=== PATIENT | female | born 1975 | race Caucasian/White ===

== ENCOUNTER 2016-11-12 20:27 | Inpatient (IN) | payer OTHER ==
[~2016-11-12] VITALS: Ht 165.1 cm; Wt 88.1 kg
[2016-11-12] MEDS: SODIUM CHLOR 0.9% 1000 ML INJ 1,000 ML IV SCH (02:00)
[~2016-11-12 20:27] MED LIST: BUPR100CR PO; LEVO.125 PO; LEXA20TA PO; SERO150T PO; ST J81CH PO; VALCYCLOVIR PO
--- NOTE | 2016-11-12 20:36 | PD ---
HPI Chief Complaint: overdose Time Seen by Provider: 20:36 Travel History International Travel<30 days: No Contact w/Intl Traveler<30days: No History of Present Illness HPI 41-year-old female with a history of mood disorder and hypothyroidism is brought to the emergency department under [facility] act by EMS for evaluation of possible intentional overdose. Per EMS report the patient texted family members earlier this afternoon around 3 PM stating that she was going to take medications to kill herself. The patient's called EMS at about 7:45 PM noting that she was unresponsive in the recliner chair. The patient's noted that there were empty bottles of Roxicodone, Lortab, Lexapro and Wellbutrin in the bathroom trash can. These are old bottles, he is unsure if she took these or not. The patient is mildly arousable to sternal rub. She has been breathing well and sats have been 94% and higher per EMS. No valuable history is obtainable from the patient. PFSH Past Medical History Asthma: Yes Blood Disorders: No Bipolar Disorder: Yes Anxiety: No Depression: No Cancer: No Cardiovascular Problems: No COPD: No Cerebrovascular Accident: No Diabetes: No Endocrine: Yes GERD: Yes Glaucoma: No Genitourinary: No Hepatitis: No Hiatal Hernia: No Hypertension: No Immune Disorder: No Kidney Stones: No Musculoskeletal: No Neurologic: Yes Psychiatric: Yes (Bipolar disorder, depression) Reproductive: Yes Respiratory: Yes Migraines: Yes Renal Failure: No Seizures: No Sleep Apnea: No Thyroid Disease: Yes (Hypothyroidism) Ulcer: No Menopausal: Yes Para: 4 Dilation and Curettage (D&C): Yes (with exploratory lap) Past Surgical History Abdominal Surgery: Yes AICD: No Arteriovenous Shunt: No Cardiac Surgery: No Section: Yes (x1) Ear Surgery: No Endocrine Surgery: No Eye Surgery: No Genitourinary Surgery: No Gynecologic Surgery: Yes (D & C, Hysterectomy, ) Hysterectomy: Yes Insulin Pump: No Joint Replacement: No Oral Surgery: No Pacemaker: No Thoracic Surgery: Yes (Breast augmentation) Other Surgery: Yes (breast augmentation) Social History Alcohol Use: Yes (weekly) Tobacco Use: No Substance Use: No Allergies-Medications (Allergen,Severity, Reaction): Coded Allergies: No Known Allergies (Verified , 11/12/16) Reported Meds & Prescriptions Reported Meds & Active Scripts Active Reported Bupropion HCl 100 Mg Tab 100 Mg PO BID Hydrocodone-Acetaminophen 5-300 Mg Tab 1 Tab PO Q6H PRN [Roxicet] 5-325 Escitalopram (Escitalopram Oxalate) 20 Mg Tab 20 Mg PO DAILY [Valcyclovir] 500 Mg PO DAILY Aspirin 81 mg chewable (Aspirin) 81 Mg Chw 81 Mg PO DAILY Seroquel XR 150 mg (Quetiapine Fumarate) 150 Mg Tab 200 Mg PO HS Synthroid (Levothyroxine Sodium) 125 Mcg Tab 200 Mcg PO DAILY Review of Systems Except as stated in HPI: all other systems reviewed are Neg Physical Exam Exam Limitations: Altered Mental Status Narrative GENERAL: Well-nourished and well-developed female patient in no acute distress. SKIN: Warm and dry. HEAD: Normocephalic and atraumatic. EYES: No injection, drainage, or hyphema noted. PERRLA. EOMI. Pinpoint pupils. ENT: No nasal drainage noted. Oropharynx is clear. NECK: Supple and the trachea is midline. CARDIOVASCULAR: Regular rate and rhythm. RESPIRATORY: Breath sounds are equal bilaterally with no accessory muscle use, wheezing, rhonchi, or crackles. GASTROINTESTINAL: Abdomen is soft, non-tender, and nondistended. MUSCULOSKELETAL: No obvious deformities, swelling, cyanosis, or ecchymosis is present throughout the upper and lower extremities. Moves all extremities equally. NEUROLOGICAL: Lethargic, arousable to sternal rub. Cranial nerves are grossly intact. Data Data Last Documented VS Vital Signs Date Time Temp Pulse Resp B/P Pulse Ox O2 Delivery O2 Flow Rate FiO2 11/12/16 21:43 89 16 114/76 100 Nasal Cannula 2 11/12/16 20:55 97.0 Orders Electrocardiogram (11/12/16 20:34) Alcohol (Ethanol) (11/12/16 20:34) Complete Blood Count With Diff (11/12/16 20:34) Comprehensive Metabolic Panel (11/12/16 20:34) Drug Screen, Random Urine (11/12/16 20:34) Salicylates (Aspirin) (11/12/16 20:34) Tylenol (Acetaminophen) (11/12/16 20:34) Chest, Single Ap (11/12/16 20:34) Ct Brain W/O Iv Contrast(Rout) (11/12/16 20:34) Arterial Blood Gas (Abg) (11/12/16 20:34) Iv Access Insert/Monitor (11/12/16 20:34) Ecg Monitoring (11/12/16 20:34) Oximetry (11/12/16 20:34) Sodium Chloride 0.9% Flush (Ns Flush) (11/12/16 20:45) Naloxone Inj (Narcan Inj) (11/12/16 20:45) Naloxone Inj (Narcan Inj) (11/12/16 20:40) Sodium Chlor 0.9% 1000 Ml Inj (Ns 1000 M (11/12/16 20:41) Thyroid Stimulating Hormone (11/12/16 21:25) Free T3 (11/12/16 21:25) ^ Sitter (11/12/16 21:28) Sodium Chlor 0.9% 1000 Ml Inj (Ns 1000 M (11/12/16 21:51) Call Poison Control (11/12/16 22:05) Acetylcysteine Inj (Acetadote Inj) (11/12/16 22:45) Tylenol (Acetaminophen) (11/13/16 01:00) Prothrombin Time / Inr (Pt) (11/12/16 22:36) Act Partial Throm Time (Ptt) (11/12/16 22:36) Acetylcysteine Inj (Acetadote Inj) (11/12/16 23:45) Naloxone Inj (Narcan Inj) (11/12/16 22:45) Naloxone Inj (Narcan Inj) (11/12/16 22:45) Acetylcysteine Inj (Acetadote Inj) (11/13/16 04:00) Ob/Psych Drug Screen, Urine (11/12/16 22:56) Urinary Catheter Insert/Apply (11/12/16 23:00) Ng Gastric Tube Insert/Monitor (11/12/16 23:00) Admit Order (Ed Use Only) (11/12/16 23:00) Labs Laboratory Tests Test 11/12/16 11/12/16 11/12/16 20:53 21:00 22:00 Blood Gas Puncture Site RT RADIAL Blood Gas Patient Temperature 98.6 Blood Gas HCO3 21 mmol/L Blood Gas Base Excess -4.0 mmol/L Blood Gas Oxygen Saturation 95 % Arterial Blood pH 7.36 Arterial Blood Partial 37 mmHg Pressure CO2 Arterial Blood Partial 134 mmHG Pressure O2 Arterial Blood Oxygen Content 17.7 Vol % Arterial Blood 1.7 % Carboxyhemoglobin Arterial Blood Methemoglobin 2.0 % Blood Gas Hemoglobin 13.1 G/DL Oxygen Delivery Device NASAL CANNULA Blood Gas Liter Flow 2 L/M White Blood Count 9.7 TH/MM3 Red Blood Count 4.66 MIL/MM3 Hemoglobin 13.3 GM/DL Hematocrit 40.0 % Mean Corpuscular Volume 86.0 FL Mean Corpuscular Hemoglobin 28.6 PG Mean Corpuscular Hemoglobin 33.3 % Concent Red Cell Distribution Width 13.8 % Platelet Count 369 TH/MM3 Mean Platelet Volume 7.6 FL Neutrophils (%) (Auto) 66.4 % Lymphocytes (%) (Auto) 25.1 % Monocytes (%) (Auto) 6.8 % Eosinophils (%) (Auto) 1.0 % Basophils (%) (Auto) 0.7 % Neutrophils # (Auto) 6.4 TH/MM3 Lymphocytes # (Auto) 2.4 TH/MM3 Monocytes # (Auto) 0.7 TH/MM3 Eosinophils # (Auto) 0.1 TH/MM3 Basophils # (Auto) 0.1 TH/MM3 CBC Comment DIFF FINAL Differential Comment Sodium Level 141 MEQ/L Potassium Level 4.0 MEQ/L Chloride Level 106 MEQ/L Carbon Dioxide Level 26.8 MEQ/L Anion Gap 8 MEQ/L Blood Urea Nitrogen 7 MG/DL Creatinine 0.81 MG/DL Estimat Glomerular Filtration 79 ML/MIN Rate Random Glucose 94 MG/DL Calcium Level 9.1 MG/DL Total Bilirubin 0.2 MG/DL Aspartate Amino Transf 16 U/L (AST/SGOT) Alanine Aminotransferase 31 U/L (ALT/SGPT) Alkaline Phosphatase 122 U/L Total Protein 8.0 GM/DL Albumin 3.5 GM/DL Free Triiodothyronine (T3) 2.18 PG/ML pg/dL Thyroid Stimulating Hormone 0.077 uIU/ML 3rd Gen Salicylates Level LESS THAN 1.7 MG/DL Acetaminophen Level 33.1 MCG/ML Ethyl Alcohol Level LESS THAN 3 MG/DL Urine Opiates Screen POS Urine Barbiturates Screen NEG Urine Amphetamines Screen NEG Urine Benzodiazepines Screen NEG Urine Cocaine Screen NEG Urine Cannabinoids Screen NEG MDM Medical Decision Making Medical Screen Exam Complete: Yes Emergency Medical Condition: Yes Differential Diagnosis Overdose versus suicidal attempt versus electrolyte abnormality versus intracranial hemorrhage Narrative Course 41-year-old female is brought to the emergency department by EMS for evaluation of intentional overdose. Patient is afebrile. She is tachycardic at around 110bpm. Otherwise vital signs are stable. She is lethargic but is protecting her airway. No focal neurologic deficits. IV access is obtained, labs have been drawn and sent. Patient is given 4 mg of Narcan and a liter of fluid. She 'll be reassessed. Chest x-ray is unremarkable. CBC is unremarkable. CMP is unremarkable. EKG shows normal sinus rhythm with no acute ST elevations or depressions, normal QT intervals. Head CT is unremarkable. Tylenol level is elevated at 33.1. Salicylate level is unremarkable. Urine tox is positive for opiates. After receiving 4 mg of Narcan IV the patient is still drowsy. She is arousable with sternal rub. She is maintaining her own respirations. Per the recommendation of my attending physician Dr. Isbell will place the patient on a Narcan drip and she is given acetylcysteine bolus. I have ordered a repeat Tylenol level for 4 hours. The patient will be admitted to intensive care services for intentional overdose and Tylenol toxicity. I discussed the case with my attending physician Dr. Isbell who is aware of the patients history, physical examination findings, and treatment plan. Physician Communication Physician Communication I spoke with Dr. Liao disability examiner who agrees to admit the patient to her service. Diagnosis Primary Impression: Intentional acetaminophen overdose Qualified Code: T39.1X2A - Intentional acetaminophen overdose, initial encounter Additional Impression: Opiate overdose Qualified Code: T40.602A - Opiate overdose, intentional self-harm, initial encounter Admitting Information Admitting Physician Requests: Admit Nadiya Tinoco Nov 12, 2016 20:36
[2016-11-12] MEDS ORDERED: NALOXONE HCL 2 MG/2 ML VIAL ONE (20:40)
[2016-11-12] MEDS ORDERED: SODIUM CHLOR 0.9% 1000 ML INJ 1,000 ML IV SCH ×2 (20:41→21:51)
[2016-11-12] MEDS ORDERED: NALOXONE HCL 2 MG/2 ML VIAL IV PUSH ONE (20:45)
[2016-11-12] MEDS ORDERED: SODIUM CHLORIDE 0.9% FLUSH 5 ML FLUSH IVF PRN (20:45)
[2016-11-12 20:55] VITALS: BP 127/72; PULSE 108; RESP 12; TEMP 97; O2SAT 96
--- NOTE | 2016-11-12 20:57 | RADRPT ---
EXAM DATE/TIME: 11/12/2016 20:47 [facility] COMPARISON: CHEST SINGLE AP, July 04, 2016, 3:34. INDICATIONS : Syncope MEDICAL HISTORY : Hyperthyroidism. Gastroesophageal reflux disease SURGICAL HISTORY : Hysterectomy. section ENCOUNTER: Initial ACUITY: 1 day PAIN SCORE: Non-responsive. LOCATION: Bilateral chest FINDINGS: A single view of the chest demonstrates the lungs to be symmetrically aerated without evidence of mas s, infiltrate or effusion. The cardiomediastinal contours are unremarkable. Osseous structures are intact. CONCLUSION: No evidence of acute cardiopulmonary disease. Alfred Rodgers MD on November 12, 2016 at 20:55 Board Certified Radiologist. This report was verified electronically.
[2016-11-12 20:58] VITALS: O2SAT 100
[2016-11-12 21:04] LABS: BLOOD GAS CARBOXYHEMOGLOBIN 1.7 % (0-4); BLOOD GAS HCO3 21 mmol/L (22-26); BLOOD GAS O2 HGB SATURATION 95 % (90-100); BLOOD GAS OXYGEN CONTENT 17.7 Vol % (12.0-20.0); BLOOD GAS PCO2 37 mmHg (38-42); BLOOD GAS PO2 134 mmHG (61-120); BLOOD GAS TOTAL HGB 13.1 G/DL (12.0-16.0); CRITICAL VALUE NO; DRAW SITE RT RADIAL; LITER FLOW 2 L/M; NUMBER OF ARTERIAL PUNCTURES 2; OXYGEN DEVICE NASAL CANNULA; STAT YES; TEMP CORR TO 98.6; ULNAR PULSE PRESENT
--- NOTE | 2016-11-12 21:29 | PD ---
Physical Exam Date Seen by Provider: Nov 12, 2016 Time Seen by Provider: 21:25 Narrative 41-year-old female was brought in by EMS as unresponsive. Her had found her unresponsive in a chair with empty pill bottles mainly Roxicodone, Synthroid, Wellbutrin, Lexapro and Lortab. Patient did not receive any Narcan by EMS since she was maintaining her own respirations. Patient was given 4 mg of Narcan as per my order which caused her to slowly wake up. She still quite lethargic. Patient is seen by the PA and I'm supervising her. Patient is tachycardic. Waiting for the blood test results. Patient will need to be admitted at least for observation given the unknown but quite possibly large quantities of each of these medications taken as an intentional overdose. Data Data Last Documented VS Vital Signs Date Time Temp Pulse Resp B/P Pulse Ox O2 Delivery O2 Flow Rate FiO2 11/12/16 21:43 89 16 114/76 100 Nasal Cannula 2 11/12/16 20:55 97.0 Orders Electrocardiogram (11/12/16 20:34) Alcohol (Ethanol) (11/12/16 20:34) Complete Blood Count With Diff (11/12/16 20:34) Comprehensive Metabolic Panel (11/12/16 20:34) Drug Screen, Random Urine (11/12/16 20:34) Salicylates (Aspirin) (11/12/16 20:34) Tylenol (Acetaminophen) (11/12/16 20:34) Chest, Single Ap (11/12/16 20:34) Ct Brain W/O Iv Contrast(Rout) (11/12/16 20:34) Arterial Blood Gas (Abg) (11/12/16 20:34) Iv Access Insert/Monitor (11/12/16 20:34) Ecg Monitoring (11/12/16 20:34) Oximetry (11/12/16 20:34) Sodium Chloride 0.9% Flush (Ns Flush) (11/12/16 20:45) Naloxone Inj (Narcan Inj) (11/12/16 20:45) Naloxone Inj (Narcan Inj) (11/12/16 20:40) Sodium Chlor 0.9% 1000 Ml Inj (Ns 1000 M (11/12/16 20:41) Thyroid Stimulating Hormone (11/12/16 21:25) Free T3 (11/12/16 21:25) ^ Sitter (11/12/16 21:28) Sodium Chlor 0.9% 1000 Ml Inj (Ns 1000 M (11/12/16 21:51) Call Poison Control (11/12/16 22:05) Acetylcysteine Inj (Acetadote Inj) (11/12/16 22:45) Tylenol (Acetaminophen) (11/13/16 01:00) Prothrombin Time / Inr (Pt) (11/12/16 22:36) Act Partial Throm Time (Ptt) (11/12/16 22:36) Acetylcysteine Inj (Acetadote Inj) (11/12/16 23:45) Naloxone Inj (Narcan Inj) (11/12/16 22:45) Naloxone Inj (Narcan Inj) (11/12/16 22:45) Acetylcysteine Inj (Acetadote Inj) (11/13/16 04:00) Ob/Psych Drug Screen, Urine (11/12/16 22:56) Urinary Catheter Insert/Apply (11/12/16 23:00) Ng Gastric Tube Insert/Monitor (11/12/16 23:00) Admit Order (Ed Use Only) (11/12/16 23:00) Ur Bath Salts (11/12/16 23:34) Ur Heroin (11/12/16 23:34) Ur K2 Spice (11/12/16 23:34) Ur Ecstasy (11/12/16 23:34) Ur Methadone (11/12/16 23:34) Phencyclidine Urine (Pcp) (11/12/16 23:34) Labs Laboratory Tests Test 11/12/16 11/12/16 11/12/16 20:53 21:00 22:00 Blood Gas Puncture Site RT RADIAL Blood Gas Patient Temperature 98.6 Blood Gas HCO3 21 mmol/L Blood Gas Base Excess -4.0 mmol/L Blood Gas Oxygen Saturation 95 % Arterial Blood pH 7.36 Arterial Blood Partial 37 mmHg Pressure CO2 Arterial Blood Partial 134 mmHG Pressure O2 Arterial Blood Oxygen Content 17.7 Vol % Arterial Blood 1.7 % Carboxyhemoglobin Arterial Blood Methemoglobin 2.0 % Blood Gas Hemoglobin 13.1 G/DL Oxygen Delivery Device NASAL CANNULA Blood Gas Liter Flow 2 L/M White Blood Count 9.7 TH/MM3 Red Blood Count 4.66 MIL/MM3 Hemoglobin 13.3 GM/DL Hematocrit 40.0 % Mean Corpuscular Volume 86.0 FL Mean Corpuscular Hemoglobin 28.6 PG Mean Corpuscular Hemoglobin 33.3 % Concent Red Cell Distribution Width 13.8 % Platelet Count 369 TH/MM3 Mean Platelet Volume 7.6 FL Neutrophils (%) (Auto) 66.4 % Lymphocytes (%) (Auto) 25.1 % Monocytes (%) (Auto) 6.8 % Eosinophils (%) (Auto) 1.0 % Basophils (%) (Auto) 0.7 % Neutrophils # (Auto) 6.4 TH/MM3 Lymphocytes # (Auto) 2.4 TH/MM3 Monocytes # (Auto) 0.7 TH/MM3 Eosinophils # (Auto) 0.1 TH/MM3 Basophils # (Auto) 0.1 TH/MM3 CBC Comment DIFF FINAL Differential Comment Sodium Level 141 MEQ/L Potassium Level 4.0 MEQ/L Chloride Level 106 MEQ/L Carbon Dioxide Level 26.8 MEQ/L Anion Gap 8 MEQ/L Blood Urea Nitrogen 7 MG/DL Creatinine 0.81 MG/DL Estimat Glomerular Filtration 79 ML/MIN Rate Random Glucose 94 MG/DL Calcium Level 9.1 MG/DL Total Bilirubin 0.2 MG/DL Aspartate Amino Transf 16 U/L (AST/SGOT) Alanine Aminotransferase 31 U/L (ALT/SGPT) Alkaline Phosphatase 122 U/L Total Protein 8.0 GM/DL Albumin 3.5 GM/DL Free Triiodothyronine (T3) 2.18 PG/ML pg/dL Thyroid Stimulating Hormone 0.077 uIU/ML 3rd Gen Salicylates Level LESS THAN 1.7 MG/DL Acetaminophen Level 33.1 MCG/ML Ethyl Alcohol Level LESS THAN 3 MG/DL Urine Opiates Screen POS Urine Barbiturates Screen NEG Urine Amphetamines Screen NEG Urine Benzodiazepines Screen NEG Urine Cocaine Screen NEG Urine Cannabinoids Screen NEG MDM Supervised Visit with GLORIA: Yes Narrative Course 11:06 PM patient is somnolent again but wakes up with sternal rub. GCS was 10 at this point. I started her on Narcan drip. Her Tylenol level was high and since the time of intake was unknown Mucomyst was started. Patient will be admitted to the ICU and the PA spoke with the network control operators supervisor who has accepted the patient. Critical Care Narrative Aggregate critical care time was 40 minutes. Time to perform other separately billable procedures was not included in the critical care time. My time did not include minutes spent treating any other patients simultaneously or on activities that did not directly contribute to the patient's treatment. The services I provided to this patient were to treat and/or prevent clinically significant deterioration that could result in: Intentional overdose, lethargic, opiate overdose, Narcan drip, Tylenol overdose, Mucomyst drip I provided critical care services requiring my management, as noted below: Chart data review, documentation time, medication orders and management, vital sign assessments/reviewing monitor data, ordering and reviewing lab tests, ordering and interpreting/reviewing x-rays and diagnostic studies, care of the patient and discussion of the patient with the admitting physicians. Admitting Information Admitting Physician Requests: Zo Truong MD Nov 12, 2016 21:29
[2016-11-12 21:43] VITALS: BP 114/76; PULSE 89; RESP 16; O2SAT 100
[2016-11-12 21:44] LABS: AUTOMATED NEUTROPHIL # 6.4 TH/MM3 (1.8-7.7); BASOPHIL # 0.1 TH/MM3 (0-0.2); BASOPHIL % 0.7 % (0.0-2.0); EOSINOPHIL # 0.1 TH/MM3 (0-0.4); HEMO FLAGS DIFF FINAL; LYMPH % 25.1 % (9.0-44.0); LYMPHOCYTE # 2.4 TH/MM3 (1.0-4.8); MEAN CORPUSCULAR HEMOGLOBIN 28.6 PG (27.0-34.0); MEAN CORPUSCULAR HGB CONC 33.3 % (32.0-36.0); MONO % 6.8 % (0.0-8.0); NEUT % 66.4 % (16.0-70.0); PLATELET COUNT 369 TH/MM3 (150-450); RED BLOOD COUNT 4.66 MIL/MM3 (4.00-5.30); RED CELL DISTRIBUTION WIDTH 13.8 % (11.6-17.2); WHITE BLOOD COUNT 9.7 TH/MM3 (4.0-11.0)
[2016-11-12] MEDS ORDERED: HYDR-4107 PO (21:47)
[2016-11-12] MEDS ORDERED: BUPR100T4 PO (21:47)
[2016-11-12] MEDS ORDERED: ROXICET (21:47)
[2016-11-12] MEDS ORDERED: ESCI20TA PO (21:47)
[2016-11-12 22:00] LABS: ALT (GPT) 31 U/L (10-53); ANION GAP 8 MEQ/L (5-15); AST (GOT) 16 U/L (15-37); BICARBONATE 26.8 MEQ/L (21.0-32.0); BLOOD UREA NITROGEN 7 MG/DL (7-18); CHLORIDE 106 MEQ/L (98-107); GLOMERULAR FILTRATION RATE 79 ML/MIN (>89); SODIUM (NA) 141 MEQ/L (136-145)
[2016-11-12 22:03] LABS: ACETAMINOPHEN 33.1 MCG/ML (10.0-30.0); ALKALINE PHOSPHATASE 122 U/L (45-117); TOTAL BILIRUBIN ADULT 0.2 MG/DL (0.2-1.0)
[2016-11-12 22:09] LABS: FREE T3 2.18 PG/ML (2.18-3.98)
--- NOTE | 2016-11-12 22:24 | RADRPT ---
EXAM DATE/TIME: 11/12/2016 22:14 [facility] COMPARISON: CT BRAIN W/O CONTRAST, July 02, 2016, 16:17. INDICATIONS : Altered mental status; possible overdose. RADIATION DOSE: 37.61 CTDIvol (mGy) MEDICAL HISTORY : None SURGICAL HISTORY : Hysterectomy. ENCOUNTER: Initial ACUITY: 1 day PAIN SCALE: Non-responsive LOCATION: cranial TECHNIQUE: Multiple contiguous axial images were obtained of the head. Using automated exposure control and adj ustment of the mA and/or kV according to patient size, radiation dose was kept as low as reasonably a chievable to obtain optimal diagnostic quality images. FINDINGS: CEREBRUM: The ventricles are normal for age. No evidence of midline shift, mass lesion, hemorrhage or acute in farction. No extra-axial fluid collections are seen. POSTERIOR FOSSA: The cerebellum and brainstem are intact. The 4th ventricle is midline. The cerebellopontine angle i s unremarkable. EXTRACRANIAL: The visualized portion of the orbits is intact. SKULL: The calvaria is intact. No evidence of skull fracture. CONCLUSION: No acute intracranial abnormality demonstrated. Alfred Rodgers MD on November 12, 2016 at 22:22 Board Certified Radiologist. This report was verified electronically.
[2016-11-12 22:27] LABS: AMPHETAMINE, URINE NEG (NEG); BARBITURATES, URINE NEG (NEG); COCAINE, URINE NEG (NEG)
[2016-11-12] MEDS ORDERED: WATER IV ONE ×2 (22:45)
[2016-11-12] MEDS ORDERED: NALOXONE HCL 0.4 MG/ML AMP IV PUSH ONE (22:45)
[2016-11-12] MEDS ORDERED: ACETYLCYSTEINE IV ONE ×8 (22:45→23:45)
[2016-11-12] MEDS ORDERED: WATE IV ONE ×6 (22:45→23:45)
[2016-11-12] MEDS ORDERED: DEXTROSE 5% IV ONE ×8 (22:45→23:45)
[2016-11-12 23:30] VITALS: BP 90/55; PULSE 76; RESP 20; O2SAT 100
[2016-11-12] MEDS ORDERED: MISCELLANEOUS NURSING INFORMATION XX SCH (23:45)
[2016-11-12] MEDS ORDERED: BISACODYL 10 MG SUPP RECTAL PRN (23:45)
[2016-11-12] MEDS ORDERED: RESP: ALBUTEROL 2.5 MG/IPRATROPIUM 0.5 MG NEB (PRN) INH (23:45)
[2016-11-12] MEDS ORDERED: MAGNESIUM HYDROXIDE SUSP 30 ML CUP PO PRN (23:45)
[2016-11-12] MEDS ORDERED: SODIUM CHLORIDE 0.9% FLUSH 5 ML FLUSH IV FLUSH PRN (23:45)
[2016-11-12] MEDS ORDERED: CHLORHEXIDINE GLUCONATE 2 % 1 PACK (2 CLOTHS) TOP PRN (23:45)
[2016-11-12] MEDS ORDERED: BISACODYL EC 5 MG TABEC PO PRN (23:45)
[2016-11-12 23:55] LABS: AMPHETAMINE, URINE NEG (NEG); BARBITURATES, URINE NEG (NEG); COCAINE, URINE NEG (NEG)
[2016-11-13] VITALS (11 sets, daily range): BP systolic 88–147; BP diastolic 52–73; PULSE 76–89; RESP 16–24; TEMP 98–100; O2SAT 97–100
--- NOTE | 2016-11-13 00:04 | HHI.HP ---
HPI Service Critical Care Medicine Primary Care Physician Nadine Ziegler MD Admission Diagnosis Intentional Overdose, Tylenol Toxicity, Opiate Overdose Diagnosis: Travel History International Travel<30 Days: No Contact w/Intl Traveler <30 Da: No Traveled to Known Affected Are: No History of Present Illness 41-year-old female that presented to the ED with intentional overdose. The patient has a history of bipolar disorder and hypothyroidism is brought to the emergency department under Khan act by EMS for evaluation of possible intentional overdose. Per EMS report the patient communicated with family members via tax family members earlier this afternoon around 3 PM stating that she was going to take medications to kill herself. The patient became unresponsive and the patient's called EMS. The patient's noted that there were empty bottles of Roxicodone, Lortab, Lexapro and Wellbutrin in the trash. The patient is mildly arousable to sternal rub. The patient's initial Tylenol level was noted to be elevated 33, poison control was contacted by Dr. Isbell, protocol was initiated acetylcysteine was ordered serial Tylenol levels and coagulation, hepatic labs are being followed. Critical care medicine was consulted for treatment and management. PFSH Past Medical History Asthma: Yes Blood Disorders: No Bipolar Disorder: Yes Anxiety: No Depression: No Cancer: No Cardiovascular Problems: No COPD: No Cerebrovascular Accident: No Diabetes: No Endocrine: Yes GERD: Yes Glaucoma: No Genitourinary: No Hepatitis: No Hiatal Hernia: No Hypertension: No Immune Disorder: No Kidney Stones: No Musculoskeletal: No Neurologic: Yes Psychiatric: Yes (Bipolar disorder, depression) Reproductive: Yes Respiratory: Yes Migraines: Yes Renal Failure: No Seizures: No Sleep Apnea: No Thyroid Disease: Yes (Hypothyroidism) Ulcer: No Menopausal: Yes Para: 4 Dilation and Curettage (D&C): Yes (with exploratory lap) Past Surgical History Abdominal Surgery: Yes AICD: No Arteriovenous Shunt: No Cardiac Surgery: No Section: Yes (x1) Ear Surgery: No Endocrine Surgery: No Eye Surgery: No Genitourinary Surgery: No Gynecologic Surgery: Yes (D & C, Hysterectomy, ) Hysterectomy: Yes Insulin Pump: No Joint Replacement: No Oral Surgery: No Pacemaker: No Thoracic Surgery: Yes (Breast augmentation) Other Surgery: Yes (breast augmentation) Social History Alcohol Use: Yes (weekly) Tobacco Use: No Substance Use: No Allergies-Medications (Allergen,Severity, Reaction): Coded Allergies: No Known Allergies (Verified , 11/12/16) Reported Meds & Prescriptions Reported Meds & Active Scripts Active Reported Bupropion HCl 100 Mg Tab 100 Mg PO BID Hydrocodone-Acetaminophen 5-300 Mg Tab 1 Tab PO Q6H PRN [Roxicet] 5-325 Escitalopram (Escitalopram Oxalate) 20 Mg Tab 20 Mg PO DAILY [Valcyclovir] 500 Mg PO DAILY Aspirin 81 mg chewable (Aspirin) 81 Mg Chw 81 Mg PO DAILY Seroquel XR 150 mg (Quetiapine Fumarate) 150 Mg Tab 200 Mg PO HS Synthroid (Levothyroxine Sodium) 125 Mcg Tab 200 Mcg PO DAILY Review of Systems Except as stated in HPI: all other systems reviewed are Neg Past Family Social History Allergies: Coded Allergies: No Known Allergies (Verified , 11/12/16) Physical Exam Vital Signs Vital Signs Date Time Temp Pulse Resp B/P Pulse Ox O2 Delivery O2 Flow Rate FiO2 11/12/16 21:43 89 16 114/76 100 Nasal Cannula 2 11/12/16 20:58 100 Nasal Cannula 4 11/12/16 20:55 97.0 108 12 127/72 96 Laboratory Laboratory Tests Test 11/12/16 11/12/16 11/12/16 11/12/16 20:53 21:00 22:00 23:34 Blood Gas Puncture Site RT RADIAL Blood Gas Patient Temperature 98.6 Blood Gas HCO3 21 Blood Gas Base Excess -4.0 Blood Gas Oxygen Saturation 95 Arterial Blood pH 7.36 Arterial Blood Partial 37 Pressure CO2 Arterial Blood Partial 134 Pressure O2 Arterial Blood Oxygen Content 17.7 Arterial Blood 1.7 Carboxyhemoglobin Arterial Blood Methemoglobin 2.0 Blood Gas Hemoglobin 13.1 Oxygen Delivery Device NASAL CANNULA Blood Gas Liter Flow 2 White Blood Count 9.7 Red Blood Count 4.66 Hemoglobin 13.3 Hematocrit 40.0 Mean Corpuscular Volume 86.0 Mean Corpuscular Hemoglobin 28.6 Mean Corpuscular Hemoglobin 33.3 Concent Red Cell Distribution Width 13.8 Platelet Count 369 Mean Platelet Volume 7.6 Neutrophils (%) (Auto) 66.4 Lymphocytes (%) (Auto) 25.1 Monocytes (%) (Auto) 6.8 Eosinophils (%) (Auto) 1.0 Basophils (%) (Auto) 0.7 Neutrophils # (Auto) 6.4 Lymphocytes # (Auto) 2.4 Monocytes # (Auto) 0.7 Eosinophils # (Auto) 0.1 Basophils # (Auto) 0.1 CBC Comment DIFF FINAL Differential Comment Sodium Level 141 Potassium Level 4.0 Chloride Level 106 Carbon Dioxide Level 26.8 Anion Gap 8 Blood Urea Nitrogen 7 Creatinine 0.81 Estimat Glomerular Filtration 79 Rate Random Glucose 94 Calcium Level 9.1 Total Bilirubin 0.2 Aspartate Amino Transf 16 (AST/SGOT) Alanine Aminotransferase 31 (ALT/SGPT) Alkaline Phosphatase 122 Total Protein 8.0 Albumin 3.5 Free Triiodothyronine (T3) 2.18 pg/dL Thyroid Stimulating Hormone 0.077 3rd Gen Salicylates Level LESS THAN 1.7 Acetaminophen Level 33.1 Ethyl Alcohol Level LESS THAN 3 Urine Opiates Screen POS POS Urine Barbiturates Screen NEG NEG Urine Amphetamines Screen NEG NEG Urine Benzodiazepines Screen NEG NEG Urine Cocaine Screen NEG NEG Urine Cannabinoids Screen NEG NEG Result Diagram: 11/12/16 2100 11/12/16 2100 Imaging Last [address] 11/12/162033 Signed Impressions: Service Date/Time: November 22:14 - CONCLUSION: No acute intracranial abnormality demonstrated. Alfred Rodgers MD Chest X-Ray 11/12/162033 Signed Impressions: Service Date/Time: November 20:47 - CONCLUSION: No evidence of acute cardiopulmonary disease. Alfred Rodgers MD Septic Shock Reassessment Heart: Regular rate and rhythm Lungs: Clear Skin: Warm Peripheral Pulses: Bounding Right Radial Bounding Left Radial Bounding Right Dorsalis Pedis Bounding Left Dorsalis Pedis Assessment and Plan Assessment and Plan This is a 41-year-old somnolent critically ill female status post intentional overdose. The patient has elevated Tylenol level and is at risk for liver failure, respiratory compromise secondary to narcotic overdose. Plan by systems: Neurologic: Altered mental status Toxic encephalopathy Narcotic overdose Acetaminophen toxicity -Neurochecks per ICU protocol. GCS 9 -Patient is somnolent-suspected overdose medications- bupropion SR, Lexapro, Roxicet, hydrocodone -Narcan infusion -Plan for psych consult-when patient is clinically stable -Follow-up urine toxicity screen Respiratory: -No acute issues -Monitor ABG, -Obtain O2 sat greater than 92%. Patient currently on nasal cannula O2 sat 99% -Maintain head of bed 30, patient is an aspiration risk continue to monitor Cardiovascular: Hypotension -Systolic blood pressure 80s, bolused with 1 L of IV fluid, a chin now normotensive will continue to monitor -Will initiate vasopressors if necessary Renal: -No acute issues -Insert Fontanez -- Strict I/Os FEN/GI: -Obtain NPO status -Insert NG tube, follow-up KUB-connected to low intermittent wall suction -Bowel regimen -Obtain serial Tylenol levels every 6 hours -Monitor hepatic panels every 6 hours -Follow-up with poison control guidelines acetaminophen toxicity -Acetylcysteine per protocol x 3 doses Heme/ID: -No acute issues hemoglobin 13.3 -Monitor coagulation profile Endocrine: Hypothyroidism Synthroid overdose -Monitor thyroid panel -- SSI Prophylaxis: GI Prophylaxis Protonix DVT Prophylaxis -- SCDs Will hold pharmacological DVT prophylaxis secondary to possible liver insult, will monitor coag profile. Lines: Peripheral IVs. Central line if indicated Dispo: This patient remains critically ill with one or more organ systems which are or may become a threat to life. I have spent in excess of 59 minutes discontinuously in the care and management of this patient. This time is exclusive of procedures, and includes, but is not limited to, evaluation of the patient, review of the medical record, discussions with family, consultants, nursing staff, or respiratory therapy, and documentation in the medical record. Code Status Full code Discussed Condition With and ED RN at bedside Maricarmen Liao MD Nov 13, 2016 00:04
[2016-11-13 00:25] LABS: PROTHROMBIN TIME - PATIENT 10.6 SEC (9.8-11.6)
[2016-11-13] MEDS: CHLORHEXIDINE GLUCONATE 2 % 1 PACK (2 CLOTHS) TOP SCH (04:00)
[2016-11-13] MEDS ORDERED: ACETYLCYSTEINE IV ONE ×2 (04:00)
[2016-11-13] MEDS ORDERED: DEXTROSE 5% IV ONE ×2 (04:00)
[2016-11-13] MEDS ORDERED: WATE IV ONE ×2 (04:00)
[2016-11-13 04:21] LABS: AUTOMATED NEUTROPHIL # 4.8 TH/MM3 (1.8-7.7); BASOPHIL # 0.1 TH/MM3 (0-0.2); BASOPHIL % 0.8 % (0.0-2.0); EOSINOPHIL # 0.1 TH/MM3 (0-0.4); EOSINOPHIL % 1.4 % (0.0-4.0); HEMO FLAGS DIFF FINAL; LYMPHOCYTE # 2.2 TH/MM3 (1.0-4.8); MEAN CELL VOLUME 87.2 FL (80.0-100.0); MEAN CORPUSCULAR HEMOGLOBIN 28.2 PG (27.0-34.0); MEAN CORPUSCULAR HGB CONC 32.4 % (32.0-36.0); MONO % 9.2 % (0.0-8.0); NEUT % 60.6 % (16.0-70.0); PLATELET COUNT 318 TH/MM3 (150-450); RED BLOOD COUNT 4.24 MIL/MM3 (4.00-5.30); RED CELL DISTRIBUTION WIDTH 14.1 % (11.6-17.2); WHITE BLOOD COUNT 7.9 TH/MM3 (4.0-11.0)
[2016-11-13 04:31] LABS: APTT (PATIENT) 26.8 SEC (24.3-30.1); PROTHROMBIN TIME - PATIENT 11.2 SEC (9.8-11.6)
[2016-11-13 04:47] LABS: ACETAMINOPHEN 13.2 MCG/ML (10.0-30.0); MAGNESIUM 2.1 MG/DL (1.5-2.5)
[2016-11-13] MEDS: SODIUM CHLORIDE 0.9% FLUSH 5 ML FLUSH IV FLUSH SCH ×2 (08:55→20:26)
[2016-11-13] MEDS: PANTOPRAZOLE SODIUM 40 MG VIAL IV SCH (09:22)
[2016-11-13 10:14] LABS: PROTHROMBIN TIME - PATIENT 11.4 SEC (9.8-11.6)
[2016-11-13 10:19] LABS: ALKALINE PHOSPHATASE 94 U/L (45-117); ALT (GPT) 40 U/L (10-53); ANION GAP 10 MEQ/L (5-15); AST (GOT) 25 U/L (15-37); BICARBONATE 19.3 MEQ/L (21.0-32.0); BLOOD UREA NITROGEN 6 MG/DL (7-18); CHLORIDE 111 MEQ/L (98-107); GLOMERULAR FILTRATION RATE 81 ML/MIN (>89); POTASSIUM 3.9 MEQ/L (3.5-5.1); SODIUM (NA) 140 MEQ/L (136-145); TOTAL BILIRUBIN ADULT 0.3 MG/DL (0.2-1.0)
--- NOTE | 2016-11-13 16:52 | EKG ---
Date Performed: 11/12/2016 Time Performed: 21:51:36 PTAGE: 41 years EKG: NORMAL Sinus rhythm NONSPECIFIC ST-T-WAVE CHANGES BORDERLINE ECG PREVIOUS TRACING : 07/05/2016 08.40 Since previous tracing, no significant change noted DOCTOR: Sandra Johnson Interpretating Date/Time 11/13/2016 16:51:38
--- NOTE | 2016-11-13 16:52 | EKG ---
Date Performed: 11/13/2016 Time Performed: 04:51:03 PTAGE: 41 years EKG: NORMAL Sinus rhythm NONSPECIFIC ST-T WAVE CHANGES NORMAL ECG PREVIOUS TRACING : 11/12/2016 21.51 Since previous tracing, no significant change noted DOCTOR: Sandra Johnson Interpretating Date/Time 11/13/2016 16:52:09
[2016-11-13] MEDS: NALOXONE INJ 4 MG in DEXTROSE 5% IN WATER INJ 246 ML IV SCH ×2 (17:32)
[2016-11-13] MEDS: SODIUM CHLOR 0.9% 1000 ML INJ 1,000 ML IV SCH (23:33)
[2016-11-14] VITALS (12 sets, daily range): BP systolic 118–133; BP diastolic 58–68; PULSE 84–96; RESP 17–24; TEMP 97.8–99.4; O2SAT 94–96
[2016-11-14 00:13] LABS: ACETAMINOPHEN LESS THAN 2.0 MCG/ML (10.0-30.0); ALT (GPT) 40 U/L (10-53); AST (GOT) 29 U/L (15-37)
[2016-11-14 00:15] LABS: ALKALINE PHOSPHATASE 96 U/L (45-117); INDIRECT BILIRUBIN 0.3 MG/DL (0.0-0.8); TOTAL BILIRUBIN ADULT 0.4 MG/DL (0.2-1.0)
[2016-11-14 00:19] LABS: APTT (PATIENT) 26.7 SEC (24.3-30.1); PROTHROMBIN TIME - PATIENT 11.2 SEC (9.8-11.6)
[2016-11-14] MEDS: SODIUM CHLOR 0.9% 1000 ML INJ 1,000 ML IV SCH (02:45)
[2016-11-14] MEDS: CHLORHEXIDINE GLUCONATE 2 % 1 PACK (2 CLOTHS) TOP SCH (04:00)
[2016-11-14] MEDS: NALOXONE INJ 4 MG in DEXTROSE 5% IN WATER INJ 246 ML IV SCH ×2 (06:43)
[2016-11-14] MEDS: PANTOPRAZOLE SODIUM 40 MG VIAL IV SCH (08:25)
[2016-11-14] MEDS: SODIUM CHLORIDE 0.9% FLUSH 5 ML FLUSH IV FLUSH SCH ×2 (08:26→20:16)
[2016-11-14] MEDS ORDERED: VALT500T PO (09:18)
[2016-11-14] MEDS ORDERED: ASPI1TAB69 PO (09:23)
[2016-11-14] MEDS ORDERED: QUET200XR PO (09:23)
[2016-11-14] MEDS ORDERED: ASPI81CH PO (09:23)
[2016-11-14] MEDS ORDERED: LEVO200T4 PO (09:23)
--- NOTE | 2016-11-14 11:16 | HHI.PR ---
Subjective Remarks patient drowsy - with blunt affect she denies any pain, headache, nausea or vomiting states she is also on chronic pain meds for knee pain Objective Vitals Vital Signs Date Time Temp Pulse Resp B/P Pulse Ox O2 Delivery O2 Flow Rate FiO2 11/14/16 10:00 92 11/14/16 08:00 89 11/14/16 08:00 98.3 89 17 133/66 94 11/14/16 06:00 84 11/14/16 04:00 90 11/14/16 04:00 98.6 90 21 127/60 94 11/14/16 02:00 90 11/14/16 00:00 90 11/14/16 00:00 99.4 90 21 130/65 96 11/13/16 22:00 89 11/13/16 20:00 83 11/13/16 20:00 98.4 83 24 125/72 97 11/13/16 18:00 80 11/13/16 16:00 98.0 80 21 147/69 99 11/13/16 16:00 80 11/13/16 12:57 80 22 141/66 100 Nasal Cannula 2.0 I/O 11/13/16 11/13/16 11/13/16 11/14/16 11/14/16 11/14/16 07:00 15:00 23:00 07:00 15:00 23:00 Intake Total 1189 ml 1293 ml 580 ml Output Total 1000 ml 2325 ml 1825 ml 900 ml Balance -1000 ml -1136 ml -532 ml -320 ml Intake Oral 0 ml 0 ml IV Total 1189 ml 1293 ml 580 ml Output Urine Total 1000 ml 2325 ml 1825 ml 900 ml # Voids 0 # Bowel Movements 0 0 Result Diagram: 11/13/16 0405 11/13/16 0940 Imaging Last Impressions Head CT 11/12/162033 Signed Impressions: Service Date/Time: November 22:14 - CONCLUSION: No acute intracranial abnormality demonstrated. Alfred Rogders MD Chest X-Ray 11/12/162033 Signed Impressions: Service Date/Time: November 20:47 - CONCLUSION: No evidence of acute cardiopulmonary disease. Alfred Rodgers MD Objective Remarks drowsy, oriented to person, blunt affect- anicteric, pupils equally reactive no nuchal rigidity lungs no rales or wheezes regular rhythm abdomen soft, nontender extremities - no knee swelling, moves all extremities spontaneously Urinary Catheter: Yes Date of Removal: Nov 14, 2016 A/P Assessment and Plan This is a 41-year-old somnolent critically ill female status post intentional overdose. The patient has elevated Tylenol level and is at risk for liver failure, respiratory compromise secondary to narcotic overdose. Plan by systems: Neurologic: Altered mental status Toxic encephalopathy Narcotic overdose Acetaminophen toxicity- S/p Mucomyst -Neurochecks per ICU protocol. GCS 9 -Patient is somnolent-suspected overdose medications- bupropion SR, Lexapro, Roxicet, hydrocodone -Narcan infusion- off now - will continue to monitor - get psych consult-when patient is clinically stable -Follow-up urine toxicity screen -recheck Hepatic panel -get an MRI- in am- if no improvement in MS Respiratory: monitor for respiratory- depression- lethargic -No acute issues- -Obtain O2 sat greater than 92%. Patient currently on nasal cannula O2 sat 99% -Maintain head of bed 30, patient is an aspiration risk continue to monitor Cardiovascular: Hypotension- resolved -Systolic blood pressure 80s, bolused with 1 L of IV fluid, a chin now normotensive will continue to monitor -Will initiate vasopressors if necessary Renal: -No acute issues -Insert Carrera- DC carrera today -- Strict I/Os FEN/GI: -Obtain NPO status -Insert NG tube, follow-up KUB-connected to low intermittent wall suction -Bowel regimen -Obtain serial Tylenol levels every 6 hours -Monitor hepatic panels every 6 hours -Follow-up with poison control guidelines acetaminophen toxicity -Acetylcysteine per protocol x 3 doses Heme/ID: -No acute issues hemoglobin 13.3 -Monitor coagulation profile Endocrine: Hypothyroidism Synthroid overdose -Monitor thyroid panel- TSH normal -- SSI Prophylaxis: GI Prophylaxis Protonix DVT Prophylaxis -- SCDs Will hold pharmacological DVT prophylaxis secondary to possible liver insult, will monitor coag profile. Lines: Peripheral IVs. Central line if indicated Dispo: may need inpatient psychiatry admission Yoli Rincon MD Nov 14, 2016 11:16
[2016-11-14 12:25] LABS: INDIRECT BILIRUBIN 0.4 MG/DL (0.0-0.8); TOTAL BILIRUBIN ADULT 0.5 MG/DL (0.2-1.0)
--- NOTE | 2016-11-14 12:54 | HHI.PYPN ---
Subjective Remarks Came to see patient, discussed patient with nurse chart review, patient seen in her room with nurse. Patient continues markedly sedated arousable only to a brief mumbling response. For now would recommend continuation of medical treatment stabilization monitoring of her mental status as she hopefully resolve from this overdose. Will check back tomorrow Review of Systems Other Unknown at this time due to patient sedation Objective Alert: No [place]: Situation (difficult to ascertain due to patient's sedation) Mood: Other (patient markedly sedated) Affect: Other (he should markedly sedated) Memory Intact: Comment (patient markedly sedated and unable to respond) Hallucinations: Other (she markedly sedated) Delusions: No (none noted patient markedly sedated) Delusion Type: Other (patient markedly sedated) Suicidal: Ideation (patient with severe suicide attempt) Homicidal: Ideation (unknown) Insight/Judgement Poor Labs Test 11/13/16 11/13/16 11/14/16 14:50 23:23 11:45 Nasal Screen MRSA (PCR) NEGATIVE Prothrombin Time 11.2 SEC Prothromb Time International 1.0 RATIO Ratio Activated Partial 26.7 SEC Thromboplast Time Total Bilirubin 0.4 MG/DL 0.5 MG/DL Direct Bilirubin 0.1 MG/DL 0.1 MG/DL Indirect Bilirubin 0.3 MG/DL 0.4 MG/DL Aspartate Amino Transf 29 U/L 31 U/L (AST/SGOT) Alanine Aminotransferase 40 U/L 40 U/L (ALT/SGPT) Alkaline Phosphatase 96 U/L 112 U/L Total Protein 6.8 GM/DL 7.3 GM/DL Albumin 2.9 GM/DL 3.0 GM/DL Acetaminophen Level LESS THAN 2.0 MCG/ML Vitals/IOs Vital Signs Date Time Temp Pulse Resp B/P Pulse Ox O2 Delivery O2 Flow Rate FiO2 11/14/16 10:00 92 11/14/16 08:00 98.3 17 133/66 94 11/13/16 12:57 Nasal Cannula 2.0 Intake and Output 11/13/16 11/13/16 11/14/16 08:00 16:00 00:00 Intake Total 1340 ml 1142 ml Output Total 1000 ml 2575 ml 1575 ml Balance -1000 ml -1235 ml -433 ml Assessment & Plan Problem List: (1) Opiate overdose ICD Code: T40.601A (2) Intentional acetaminophen overdose ICD Code: T39.1X2A (3) Somnolence ICD Code: R40.0 Assessment & Plan Estimated LOS: days to be determined Justification for Cont. Inpt. Patient continues to per secondary to suicide attempt by overdose multiple drugs Discharge Planning To be determined Problem Qualifiers (1) Opiate overdose: Qualified Code: T40.602A - Opiate overdose, intentional self-harm, initial encounter (2) Intentional acetaminophen overdose: Qualified Code: T39.1X2A - Intentional acetaminophen overdose, initial encounter Alfred Delgadillo MD Nov 14, 2016 12:54
[2016-11-14] MEDS ORDERED: ONDANSETRON HCL 4 MG/2 ML VIAL IV PUSH PRN (19:45)
[2016-11-15] VITALS (12 sets, daily range): BP systolic 110–141; BP diastolic 58–73; PULSE 78–91; RESP 12–27; TEMP 98.1–98.6; O2SAT 92–94
[2016-11-15] MEDS: CHLORHEXIDINE GLUCONATE 2 % 1 PACK (2 CLOTHS) TOP SCH (04:00)
[2016-11-15] MEDS: PANTOPRAZOLE SODIUM 40 MG VIAL IV SCH (09:39)
[2016-11-15] MEDS: SODIUM CHLORIDE 0.9% FLUSH 5 ML FLUSH IV FLUSH SCH ×2 (09:40→19:34)
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
[2016-11-15] MEDS: ESCITALOPRAM OXALATE 20 MG TAB PO SCH (16:44)
[2016-11-15] MEDS: SODIUM CHLOR 0.9% 1000 ML INJ 1,000 ML IV SCH (16:44)
--- NOTE | 2016-11-15 17:20 | HHI.PR ---
Subjective Remarks supportive family at bedside very awake and alert, interactive and actually smiling and gave us 2 thumbs up Objective Vitals Vital Signs Date Time Temp Pulse Resp B/P Pulse Ox O2 Delivery O2 Flow Rate FiO2 11/15/16 16:00 98.1 91 27 135/63 94 11/15/16 16:00 91 11/15/16 14:00 91 11/15/16 12:00 98.4 85 26 135/59 93 11/15/16 12:00 85 11/15/16 10:00 91 11/15/16 08:00 81 11/15/16 08:00 98.4 81 21 141/61 94 11/15/16 06:00 78 11/15/16 04:00 98.1 81 12 134/58 93 11/15/16 04:00 81 11/15/16 02:00 82 11/15/16 00:00 98.3 86 12 131/60 92 11/15/16 00:00 86 11/14/16 22:00 86 11/14/16 20:00 97.8 87 24 132/58 95 11/14/16 20:00 87 11/14/16 18:00 93 I/O 11/14/16 11/14/16 11/14/16 11/15/16 11/15/16 11/15/16 07:00 15:00 23:00 07:00 15:00 23:00 Intake Total 580 ml 1049 ml 248 ml 891 ml 1113 ml Output Total 900 ml 1700 ml 500 ml 450 ml 900 ml Balance -320 ml -651 ml -252 ml 441 ml 213 ml Intake Oral 0 ml 60 ml 120 ml 240 ml 400 ml IV Total 580 ml 989 ml 128 ml 651 ml 713 ml Output Urine Total 900 ml 1700 ml 500 ml 450 ml 900 ml # Bowel Movements 0 0 0 0 0 Result Diagram: 11/13/16 0405 11/13/16 0940 Imaging Last Impressions Head CT 11/12/162033 Signed Impressions: Service Date/Time: November 22:14 - CONCLUSION: No acute intracranial abnormality demonstrated. Alfred Rodgers MD Chest X-Ray 11/12/162033 Signed Impressions: Service Date/Time: November 20:47 - CONCLUSION: No evidence of acute cardiopulmonary disease. Alfred Rodgers MD Objective Remarks awke and alert, interactive anicteric, pupils equally reactive no nuchal rigidity lungs no rales or wheezes regular rhythm abdomen soft, nontender extremities - no knee swelling, moves all extremities spontaneously, no edema Date of Removal: Nov 14, 2016 A/P Assessment and Plan This is a 41-year-old somnolent critically ill female status post intentional overdose. The patient has elevated Tylenol level and is at risk for liver failure, respiratory compromise secondary to narcotic overdose. Plan by systems: Neurologic: Altered mental status Toxic encephalopathy Narcotic overdose Acetaminophen toxicity- S/p Mucomyst - transfer to medical floor - marked improvement in affect - tarted on psychiatric meds Respiratory: monitor for respiratory- depression- l- resolved -No acute issues- -Obtain O2 sat greater than 92%. Patient currently on nasal cannula O2 sat 99% -Maintain head of bed 30, patient is an aspiration risk continue to monitor Cardiovascular: Hypotension- resolved -Systolic blood pressure 80s, bolused with 1 L of IV fluid, a chin now normotensive will continue to monitor -Will initiate vasopressors if necessary Renal: -No acute issues carrera out- foiding well Heme/ID: -No acute issues hemoglobin 13.3 -Monitor coagulation profile Endocrine: Hypothyroidism Synthroid overdose -Monitor thyroid panel- TSH normal -- SSI Prophylaxis: GI Prophylaxis Protonix DVT Prophylaxis -- SCDs transfer to medical floor - psychiatry ff - ? inpatient psychiatry admission- Yoli Rincon MD Nov 15, 2016 17:20
[2016-11-15] MEDS: QUEtiapine FUMARATE 100 MG TAB PO SCH (19:34)
[2016-11-15] MEDS: buPROPion HCL 100 MG TAB PO SCH (19:35)
[2016-11-16] VITALS (7 sets, daily range): BP systolic 105–117; BP diastolic 67–79; PULSE 75–83; RESP 14–24; TEMP 97.5–98.2; O2SAT 93–96
[2016-11-16] MEDS ORDERED: ACETAMINOPHEN 325 MG TAB PO ONE (00:45)
[2016-11-16] MEDS: CHLORHEXIDINE GLUCONATE 2 % 1 PACK (2 CLOTHS) TOP SCH (04:00)
[2016-11-16] MEDS ORDERED: LEVOTHYROXINE SODIUM 200 MCG TAB PO SCH (06:00)
[2016-11-16] MEDS: SODIUM CHLORIDE 0.9% FLUSH 5 ML FLUSH IV FLUSH SCH (08:53)
[2016-11-16] MEDS: QUEtiapine FUMARATE 100 MG TAB PO SCH (08:53)
[2016-11-16] MEDS: ESCITALOPRAM OXALATE 20 MG TAB PO SCH (08:53)
[2016-11-16] MEDS: buPROPion HCL 100 MG TAB PO SCH (09:10)
--- NOTE | 2016-11-16 14:38 | HHI.PR ---
Subjective Remarks no complains, wants to go home family dynamics going on with her grown children- she has a supportive - who is not the father of this kids denies any suicidal ideations, very interactive and more open regarding her family situation Objective Vitals Vital Signs Date Time Temp Pulse Resp B/P Pulse Ox O2 Delivery O2 Flow Rate FiO2 11/16/16 06:00 75 11/16/16 04:00 97.7 80 14 117/73 94 11/16/16 04:00 80 11/16/16 02:00 79 11/16/16 00:00 98.2 81 23 105/74 93 11/16/16 00:00 81 11/15/16 22:00 87 11/15/16 20:00 90 11/15/16 20:00 98.6 110/73 94 11/15/16 18:00 88 11/15/16 16:00 98.1 91 27 135/63 94 11/15/16 16:00 91 I/O 11/15/16 11/15/16 11/15/16 11/16/16 11/16/16 11/16/16 07:00 15:00 23:00 07:00 15:00 23:00 Intake Total 891 ml 1188 ml 240 ml 120 ml Output Total 450 ml 900 ml 450 ml Balance 441 ml 288 ml -210 ml 120 ml Intake Oral 240 ml 400 ml 240 ml 120 ml IV Total 651 ml 788 ml 0 ml 0 ml Output Urine Total 450 ml 900 ml 450 ml # Voids 0 0 # Bowel Movements 0 0 0 0 Result Diagram: 11/13/16 0405 11/13/16 0940 Imaging Last Impressions Head CT 11/12/162033 Signed Impressions: Service Date/Time: November 22:14 - CONCLUSION: No acute intracranial abnormality demonstrated. Alfred Rodgers MD Chest X-Ray 11/12/162033 Signed Impressions: Service Date/Time: November 20:47 - CONCLUSION: No evidence of acute cardiopulmonary disease. Alfred Rodgers MD Objective Remarks awke and alert, interactive anicteric, pupils equally reactive no nuchal rigidity lungs no rales or wheezes regular rhythm abdomen soft, nontender extremities - no edema neuro - intact Date of Removal: Nov 14, 2016 A/P Assessment and Plan This is a 41-year-old somnolent critically ill female status post intentional overdose. The patient has elevated Tylenol level and is at risk for liver failure, respiratory compromise secondary to narcotic overdose. Plan by systems: Neurologic: Altered mental status- resolved Toxic encephalopathy Narcotic overdose Acetaminophen toxicity- S/p Mucomyst - transfer to medical floor - marked improvement in affect - started on psychiatric meds - denies suicidal ideations- still Under Backer act Respiratory: monitor for respiratory- depression- l- resolved -No acute issues- -Obtain O2 sat greater than 92%. Patient currently on nasal cannula O2 sat 99% -Maintain head of bed 30, patient is an aspiration risk continue to monitor Cardiovascular: Hypotension- resolved -Systolic blood pressure 80s, bolused with 1 L of IV fluid, a chin now normotensive will continue to monitor -Will initiate vasopressors if necessary Renal: -No acute issues carrera out- foiding well Heme/ID: -No acute issues hemoglobin 13.3 -Monitor coagulation profile Endocrine: Hypothyroidism Synthroid overdose -Monitor thyroid panel- TSH normal -- SSI - restart on her synthroid 200 mcg daily Prophylaxis: GI Prophylaxis Protonix DVT Prophylaxis -- SCDs transfer to medical floor wll d/w Dr. Carolina- - inpat psychiatry or DC to community if Khan Act lifted OP ff up with PCP- Dr. Ziegler and psychiatrist- Dr. Kriss Lunsford if DC to the community Yoli Rincon MD Nov 16, 2016 14:38
--- NOTE | 2016-11-16 15:46 | HHI.PYPN ---
Subjective Remarks On psychiatric evaluation today the patient is calm and cooperative, she said the feels much better now, she is happy to be alive, regrets her recent overdose. Patient states that she is very impulsive sometimes doesn't think that she is doing, patient is motivated to continue her psychiatric care as an outpatient, she denies depressive symptoms, denies anxiety, ortiz, denies perceptual disturbances. She denies suicidal ideation. On longitudinal observation, no aggressive behavior, agitation, behavioral dysregulation has been observed. Review of Systems Other No significant changes since 11/15/2016 Objective Alert: Yes [place]: Person, Place, Situation (difficult to ascertain due to patient's sedation) Mood: Calm Affect: Euthymic, Other (he should markedly sedated) Memory Intact: Recent, Remote Hallucinations: Other (none) Delusions: No (none noted patient markedly sedated) Delusion Type: Other (none) Suicidal: Ideation (she denies) Homicidal: Ideation (she denies) Insight/Judgement fair Vitals/IOs Vital Signs Date Time Temp Pulse Resp B/P Pulse Ox O2 Delivery O2 Flow Rate FiO2 11/16/16 12:00 98.2 83 17 115/79 96 11/13/16 12:57 Nasal Cannula 2.0 Intake and Output 11/15/16 11/15/16 11/16/16 08:00 16:00 00:00 Intake Total 891 ml 1188 ml 240 ml Output Total 450 ml 900 ml 450 ml Balance 441 ml 288 ml -210 ml Assessment & Plan Problem List: (1) Opiate overdose ICD Code: T40.601A (2) Intentional acetaminophen overdose Assessment & Plan: Patient does present any evidence of depression, anxiety, perceptual disturbances, ortiz, she denies suicidal ideation at this moment. No psychotic admission recommended. Khan act will be lifted, she can continue psychiatric care as an outpatient. ICD Code: T39.1X2A (3) Somnolence ICD Code: R40.0 (4) Major depressive disorder, recurrent, severe w/o psychotic behavior ICD Code: F33.2 Assessment & Plan Estimated LOS: days Justification for Cont. Inpt. Patient does not meet criteria for psychiatric admission at this moment. Request HC Surrog/Guard Advoc?: No Problem Qualifiers (1) Opiate overdose: Qualified Code: T40.602A - Opiate overdose, intentional self-harm, initial encounter (2) Intentional acetaminophen overdose: Qualified Code: T39.1X2A - Intentional acetaminophen overdose, initial encounter Joaquin Carolina MD Nov 16, 2016 15:46
--- NOTE | 2016-11-16 15:52 | HHI.DS ---
Discharge Summary Admission Date Nov 12, 2016 at 23:03 Discharge Date: Nov 16, 2016 Admitting Diagnosis Intentional Overdose, Tylenol Toxicity, Opiate Overdose (1) Intentional acetaminophen overdose ICD Code: T39.1X2A Diagnosis: Principal Procedures none Brief History - From Admission 41-year-old female that presented to the ED with intentional overdose. The patient has a history of bipolar disorder and hypothyroidism is brought to the emergency department under Khan act by EMS for evaluation of possible intentional overdose. Per EMS report the patient communicated with family members via tax family members earlier this afternoon around 3 PM stating that she was going to take medications to kill herself. The patient became unresponsive and the patient's called EMS. The patient's noted that there were empty bottles of Roxicodone, Lortab, Lexapro and Wellbutrin in the trash. The patient is mildly arousable to sternal rub. The patient's initial Tylenol level was noted to be elevated 33, poison control was contacted by Dr. Isbell, protocol was initiated acetylcysteine was ordered serial Tylenol levels and coagulation, hepatic labs are being followed. Critical care medicine was consulted for treatment and management. CBC/BMP: 11/13/16 0405 11/13/16 0940 Significant Findings Laboratory Tests Test 11/13/16 11/14/16 23:23 11:45 Albumin 2.9 GM/DL 3.0 GM/DL (3.4-5.0) (3.4-5.0) Acetaminophen Level LESS THAN 2.0 MCG/ML (10.0-30.0) Imaging Last Impressions Head CT 11/12/162033 Signed Impressions: Service Date/Time: November 22:14 - CONCLUSION: No acute intracranial abnormality demonstrated. Alfred Rodgers MD Chest X-Ray 11/12/162033 Signed Impressions: Service Date/Time: November 20:47 - CONCLUSION: No evidence of acute cardiopulmonary disease. Alfred Rodgers MD PE at Discharge awke and alert, interactive anicteric, pupils equally reactive no nuchal rigidity lungs no rales or wheezes regular rhythm abdomen soft, nontender extremities - no edema neuro - intact Pt update on day of discharge awake and aleert, interactive denies any suicidal ideations, very motivated with lifestyle changes and dealing with family situations Hospital Course This is a 41-year-old somnolent critically ill female status post intentional overdose. The patient has elevated Tylenol level and is at risk for liver failure, respiratory compromise secondary to narcotic overdose. Plan by systems: Neurologic: Altered mental status- resolved Toxic encephalopathy Narcotic overdose Acetaminophen toxicity- S/p Mucomyst - transfer to medical floor - marked improvement in affect - started on psychiatric meds - denies suicidal ideations- still Under Backer act Respiratory: monitor for respiratory- depression- l- resolved -No acute issues- -Obtain O2 sat greater than 92%. Patient currently on nasal cannula O2 sat 99% -Maintain head of bed 30, patient is an aspiration risk continue to monitor Cardiovascular: Hypotension- resolved -Systolic blood pressure 80s, bolused with 1 L of IV fluid, a chin now normotensive will continue to monitor -Will initiate vasopressors if necessary Renal: -No acute issues carrera out- foiding well Heme/ID: -No acute issues hemoglobin 13.3 -Monitor coagulation profile Endocrine: Hypothyroidism Synthroid overdose -Monitor thyroid panel- TSH normal -- SSI - restart on her synthroid 200 mcg daily Prophylaxis: GI Prophylaxis Protonix DVT Prophylaxis -- SCDs transfer to medical floor wll d/w Dr. Carolina- - inpat psychiatry or DC to community if Khan Act lifted OP ff up with PCP- Dr. Ziegler and psychiatrist- Dr. Kriss Lunsford if DC to the community Pt Condition on Discharge: Good Discharge Disposition: Discharge Home Discharge Time: <= 30 minutes Discharge Instructions DIET: Follow Instructions for: As Tolerated, No Restrictions Speech Therapy-Diet Recommends: Regular Activities you can perform: Weight Bearing as Marilee Follow up Referrals: PCP Follow-up - 11/19/16 with [facility] - 11/18/16 with [facility] Continued Medications: Aspirin (Aspirin) 81 Mg Tabdr 81 MG PO DAILY TAB Bupropion HCl (Bupropion HCl) 100 Mg Tab 100 MG PO BID Control Depression Ref 0 TAB Escitalopram (Escitalopram) 20 Mg Tab 20 MG PO DAILY #30 Ref 0 TAB Levothyroxine (Levothyroxine) 200 Mcg Tab 200 MCG PO DAILY Thyroid #30 Ref 0 TAB Discontinued Medications: Hydrocodone-Acetaminophen (Hydrocodone-Acetaminophen) 5-300 Mg Tab 1 TAB PO Q6H PRN PAIN Ref 0 TAB Quetiapine XR (Seroquel XR) 200 Mg Tab 200 MG PO HS #30 Ref 0 TAB Valacyclovir (Valtrex) 500 Mg Tab 500 MG PO DAILY Mgmt Viral Infection #30 Ref 0 TAB ([Roxicet]) 5-325 Yoli Rincon MD Nov 16, 2016 15:52 Yoli Rincon MD Nov 16, 2016 15:52
[2016-11-18 09:00] LABS: BATH SALTS (MDPV) UR NEG (NEG); ECSTASY (MDMA) UR NEG (NEG); HEROIN (6-ACETYLMORPHINE) UR NEG (NEG); K2 SPICE UR NEG (NEG); OBMETHADONE UR NEG (NEG); PHENCYCLIDINE URINE NEG (NEG)
[2016-11-18 09:01] LABS: OXYCODONE (PERCODAN) POS (NEG)
== END 2016-11-16 18:20 | disposition home or self-care (01) | DRG 917 ==
LOC: NEPC 20:27 → NEDA 23:03 → NEDH 11-13 03:03 → HIME 11-13 14:00
PROVIDERS: ADMIT Internal Medicine; ATTEND Internal Medicine
DX: T39.1X2A Poisoning by 4-Aminophenol derivatives, intentional self-harm, initial encounter (principal); G92 Toxic encephalopathy; F33.2 Major depressive disorder, recurrent severe without psychotic features; E03.9 Hypothyroidism, unspecified; T40.602A Poisoning by unspecified narcotics, intentional self-harm, initial encounter; J45.909 Unspecified asthma, uncomplicated; K21.9 Gastro-esophageal reflux disease without esophagitis; Z91.5 Personal history of self-harm
CPT/HCPCS: 36600; 70450; 71010; 80048; 80053; 80076; 80307; 80320; 80329; 80361; 82550; 82805; 83735; 84100; 84443; 84481; 85025; 85610; 85730; 87641; 93005; 96374; 96375; 96376; C9113; G0480; G0481; J0132; J2310; J2405; J7030; J7060; J7070